=== PATIENT | female | born 1985 | race Caucasian/White ===

== ENCOUNTER 2022-04-04 13:51 | Inpatient (IN) ==
[2022-04-04] MEDS ORDERED: LIDOCAINE 1% LOCAL 20 ML VIAL INFIL PRN (13:56)
[2022-04-04] MEDS ORDERED: OXYTOCIN 30 UNITS/500 ML BAG IV PRN ×2 (13:56→15:25)
[2022-04-04] MEDS ORDERED: LACTATED RINGER'S 1,000 ML IV PRN (13:56)
--- NOTE | 2022-04-04 14:05 | History & Physical Report ---
Date of Service April 04, 2022 Assessment & Plan (1) Active labor at term: Plan Admit to L&D for active labor. IVF. Pit. Epidural for pain control. A+. Rubella immune. GBS neg. No active HSV lesions - can continue with . History of Present Illness Chief Complaint: Labor Primary Care Provider: NO PCP 37 y/o at 39 5/7 here in labor. AMA. 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 A+. Rubella immune. GBS neg. Contractions started at 3 AM and are getting closer together. She was seen in OB clinic this afternoon and was found to be 3 cm dilated with painful contractions and was directed to come to L&D. Allergies Allergy/AdvReac Type Severity Reaction Status Date / Time Sulfa (Sulfonamide Allergy nausea Verified 04/04/22 13:10 Antibiotics) Home Medications Medication Instructions Recorded Confirmed Type prenat.vits,zora,geg-socn-leyhm 1 tab PO DAILY 12/23/21 04/04/22 History valacyclovir 500 mg tablet 500 mg PO BID #60 tabs 03/01/22 04/04/22 Rx (Valtrex) Patient History Surgical History (Updated 12/23/21 @ 17:16 by Adela Stauffer) S/P dilation and curettage Family History (Updated 12/23/21 @ 16:54 by Adela Stauffer) Uncle Cancer Aunt Breast cancer Social History (Updated 12/23/21 @ 17:07 by Adela Stauffer) Smoking Status: Never smoker Hx Alcohol Use: No Hx Substance Use: No marital status: marital status details: Florentino [phone] Current Living Situation: Spouse Current Living Situation Comment: lives with spouse and child, 1dog, 1 cat, spouse to change litter. 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 Supervising Physician Co-Signing Physician Notes Resident Physician Supervision Note: I interviewed and examined the patient. Discussed with Dr. Puente and agree with findings and plan as documented in the note. Any exceptions or clarifications are listed here: Patient is a with iup at term for labor from the office. Patient notes hx of lsa and irritated area on the perineum. ON exam , there is fissuring in areas of LSA but NO hsv lesions noted. Patient with hx of previous vaginal delivery. Is 5cm on admission. Plan epidural and then likely arom with delivery. fetus category one. Documented By: Sarika Beckham MD, FACOG Resident Activity Tracking Resident Involvement: Resident Care Provided Care Provided: OB Delivery
[2022-04-04] MEDS ORDERED: SODIUM CHLORIDE 0.9% INJ 10 ML VIAL ONE (14:26)
[2022-04-04] MEDS ORDERED: ePHEDrine sulfate 50 MG/ML AMP ONE (14:26)
[2022-04-04] MEDS ORDERED: BUPIVACAINE 0.25% 30 ML VIAL ONE (14:26)
[2022-04-04] MEDS ORDERED: LIDOCAINE 2%/EPINEPHRINE 1:200,000 20 ML SDV ONE (14:26)
[2022-04-04] MEDS ORDERED: fentaNYL citrate 100 MCG/2 ML VIAL ONE (14:26)
[2022-04-04] MEDS ORDERED: fentaNYL 2MCG/ML ROPIVACAINE 1.25MG/ML 100 ML BAG EPI ONE (14:27)
[2022-04-04 14:28] LABS: Hematocrit (blood only) 38.6 % (34.1-44.9); Hemoglobin 13.2 g/dl (12.0-16.0); Mean Corpuscular Hemoglobin 29.2 pg (25.0-34.0); Mean Corpuscular Hgb Conc 34.2 g/dL (32.0-36.0); Mean Corpuscular Volume 85.4 fL (80.0-100.0); Mean Platelet Volume 9.7 fL (9.4-12.3); Platelet Count 253 K/uL (130-400); RDW Coefficient of Variation 15.9 % (11.5-14.5); RDW Standard Deviation 49.1 fL (36.4-46.3); Red Blood Count 4.52 M/uL (3.93-5.22); White Blood Count 12.84 K/ul (4.8-10.8)
--- NOTE | 2022-04-04 14:33 | Anesthesiology Consultation ---
Date of Service April 04, 2022 Assessment & Plan (1) Encounter for pre-operative examination: Chart Review Chart Review: Acceptable Risk for Labor Epidural History Height/Weight Height: 5 ft 4 in Weight: 75.296 kg Allergies Allergy/AdvReac Type Severity Reaction Status Date / Time Sulfa (Sulfonamide Allergy nausea Verified 04/04/22 13:10 Antibiotics) Medications Home Medications Medication Instructions Recorded Confirmed Last Taken prenat.vits,zora,nkr-wweo-lxcps 1 tab PO DAILY 12/23/21 04/04/22 Unknown valacyclovir 500 mg tablet 500 mg PO BID #60 tabs 03/01/22 04/04/22 Unknown (Valtrex) Active Medications Generic Name Dose Route Start Last Admin Trade Name Freq PRN Reason Stop Dose Admin Lactated Ringer's 1,000 mls @ 125 mls/hr 04/04/22 13:56 04/04/22 14:24 Lr IV 04/06/22 13:55 999 mls/hr .Q8H PRN Administration L&D Protocol Protocol Past Medical History Medical History (Updated 04/04/22 @ 14:33 by Oliver Burgos MD) Active labor at term Past Family History Family History Uncle Cancer Aunt Breast cancer Past Surgical History Surgical History S/P dilation and curettage Social History Smoking Status: Never smoker Hx Alcohol Use: No Hx Substance Use: No substance use type: does not use Physical Exam Vital Signs Last Vital Signs Temp 36.8 C 04/04/22 14:07 Pulse 112 H 04/04/22 13:58 Resp 20 04/04/22 14:07 BP 152/82 H 04/04/22 13:58 Testing Laboratory Results 04/04/22 14:18
--- NOTE | 2022-04-04 15:21 | Delivery Summary ---
Vaginal Delivery Summary Date of Service April 04, 2022 Vaginal Delivery Summary and 2nd Degree LAC Pre-operative Diagnosis: at 39 weeks active labor Post-operative Diagnosis: same Procedure: srom second degree laceration and repair EBL: 300cc Anesthesia: epidural Procedure: the patient presented to labor and delivery in active labor. 5cm on admission. Sat up for epidural, had srom and need to push. The patient pushed for 2 contractions to deliver a viable male infant in maxi position. The rest of the was then delivered without difficulty. The baby was vigorous. The nose and mouth were bulb suctioned and the infant was placed in the maternal abdomen for drying and attention. Cord was clamped and cut at one minute of life. Cord blood and segment obtained. Placenta delivered spontaneous, intact with a three vessel cord. Cervix/sulci/rectum were intact. A second degree perineal laceration was repaired in the normal standard fashion. Hemostasis obtained with dilute pitocin and fundal massage. Apgars were 8/9. Mother and baby doing well at the end of the delivery. [facility] [place] Vaginal Delivery Charge Delivery Type Details: and 2nd Degree LAC
[2022-04-04] MEDS ORDERED: BENZOCAINE 20% AER SPR 82.5 GM CAN EXT PRN (15:25)
[2022-04-04] MEDS ORDERED: DIPHTHERIA/TETANUS/PERTUSSIS 0.5 ML SYR/VIAL IM ONE (15:25)
[2022-04-04] MEDS ORDERED: ACETAMINOPHEN 325 MG TAB PO PRN (15:25)
[2022-04-04] MEDS ORDERED: HYDROCORTISONE ACETATE 25 MG SUPP PR PRN (15:25)
[2022-04-04] MEDS ORDERED: bisacodyL 10 MG SUPP PR PRN (15:25)
[2022-04-04] MEDS: IBUPROFEN 600 MG TAB PO PRN ×2 (15:56→19:46)
[2022-04-04] MEDS: DOCUSATE SODIUM 100 MG CAP PO SCH (22:06)
[2022-04-05] MEDS: IBUPROFEN 600 MG TAB PO PRN ×3 (00:01→15:46)
--- NOTE | 2022-04-05 06:08 | Obstetrical Progress Note ---
Date of Service <Cyndie Puente MD - Last Filed: 04/05/22 07:35> April 05, 2022 Assessment & Plan <Cyndie Puente MD - Last Filed: 04/05/22 07:35> (1) care following vaginal delivery: 37 y/o at 39 5/7 presented in labor now PPD1 s/p . AMA. 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 A+. Rubella immune. GBS neg. Satisfactory post- progress. Patient tolerating PO. Encourage ambulation. Can consider d/c today - pending peds clearance and continued post- progress. F/u in office in 6 weeks, sooner if needed <Sarika Beckham MD, FACOG - Last Filed: 04/05/22 07:51> (1) care following vaginal delivery: Subjective <Cyndie Puente MD - Last Filed: 04/05/22 07:35> Ambulation: ambulating normally Voiding: no voiding problems Passing Gas:: Yes Diet Tolerance:: regular diet Lochia:: Small Feeding Type:: breast feeding no f/c/SOB/CP/calf pain Physical Exam <Cyndie Puente MD - Last Filed: 04/05/22 07:35> Constitutional WD/WN, vitals as above Respiratory normal respiratory effort, lungs clear to auscultation Cardiovascular RRR, no murmur, no edema Extremities: no calf tenderness Psychiatric A+Ox3, euthymic affect Genitourinary OB Exam Abdomen: + fundal height (@ the level of the umbilicus) Fundus: + firm Results & Data ([facility]) <Cyndie Puente MD - Last Filed: 04/05/22 07:35> Vital Signs (Past 12 Hours) Vital Signs Temp Pulse Resp BP Pulse Ox O2 Del Method 04/05/22 03:20 36.6 C 81 18 139/72 97 Room Air 04/05/22 00:05 36.5 C 94 H 18 132/74 98 Room Air 04/04/22 19:30 36.5 C 90 18 110/69 98 Room Air <Sarika Beckham MD, FACOG - Last Filed: 04/05/22 07:51> Co-Signing Physician Notes Resident Physician Supervision Note: I interviewed and examined the patient. Discussed with Dr. Puente and agree with findings and plan as documented in the note. Any exceptions or clarifications are listed here: Doing well. Likely d/c tonight. Instructions given. Documented By: Sarika Beckham MD, FACOG Resident Activity Tracking <Cyndie Puente MD - Last Filed: 04/05/22 07:35> Resident Involvement: Resident Care Provided Care Provided: OB Delivery
[2022-04-05 07:33] LABS: Hematocrit (blood only) 32.1 % (34.1-44.9); Hemoglobin 10.9 g/dl (12.0-16.0)
[2022-04-05] MEDS ORDERED: PRENATAL VITAMIN 1 TAB PO SCH (08:00)
[2022-04-05] MEDS: DOCUSATE SODIUM 100 MG CAP PO SCH (08:16)
[2022-04-05] MEDS ORDERED: NON-FORMULARY MEDICATION (Prenat.Vits,Cal,Min-Iron-Folic tablet) PO SCH (09:00)
[2022-04-05] MEDS ORDERED: bisacodyL 5 MG TABEC PO SCH (20:00)
== END 2022-04-05 17:05 | disposition home or self-care (01) | DRG 807 ==
LOC: OPB 13:51 → 4S1 13:52 → 4E2 18:04